=== PATIENT | male | born 1985 | race Caucasian/White ===

== ENCOUNTER 2023-11-14 13:23 | Outpatient (CLI) | payer OTHER, SELFPAY ==
--- NOTE | ~2023-11-14 | MR_ITS ---
EXAMINATION: MR lumbar spine wo con DATE: 11/14/2023 14:07 INDICATION: Low back pain. Right foot numbness and tingling. TECHNIQUE: Magnetic resonance imaging (MRI) of the lumbar spine was performed without intravenous con trast. Sequences included sagittal T2-weighted FSE, sagittal T2-weighted FS FSE, sagittal T1-weighted FSE, and axial T2-weighted FSE. COMPARISON: None FINDINGS: Bone alignment is normal. There are Schmorl's nodes at most levels. There is mild chronic h eight loss of L5 vertebral body posteriorly. There is mild chronic anterior wedging of T12 and L1 kristi tebral bodies, likely physiologic. There is mildly decreased disc height at L4-L5 and L5-S1. The dist al spinal cord signal intensity is normal. The conus medullaris is at T12-L1. The following disc leve ls are specifically discussed: L1-L2: The disc does not extend beyond the endplate margin. There is moderate bilateral facet joint o steoarthritis. There is no neural foraminal stenosis. There is no central canal stenosis. L2-L3: The disc does not extend beyond the endplate margin. There is mild bilateral facet joint osteo arthritis. There is no neural foraminal stenosis. There is no central canal stenosis. L3-L4: The disc is mildly bulging. There is mild bilateral facet joint osteoarthritis. There is mild bilateral neural foraminal stenosis. There is no central canal stenosis. L4-L5: The disc is bulging with superimposed central extrusion. There is mild right and moderate left facet joint osteoarthritis. There is mild bilateral neural foraminal stenosis. There is mild central canal stenosis. L5-S1: There is a central extrusion. There is severe bilateral facet joint osteoarthritis. There is n o neural foraminal stenosis. There is mild central canal stenosis. IMPRESSION: 1. Mild lumbar spondylosis. Reviewed, dictated and finalized at location E. IMPRESSION: 1. Mild lumbar spondylosis.
== END 2023-11-14 13:24 ==
DX: M47.27 Other spondylosis with radiculopathy, lumbosacral region (principal)
CPT/HCPCS: 72148